=== PATIENT | male | born 1970 | race Caucasian/White ===

== ENCOUNTER 2024-02-26 07:40 | Emergency (ER) | payer BC, SELFPAY ==
[2024-02-26] VITALS (17 sets, daily range): BP systolic 110–128; BP diastolic 66–87; PULSE 65–89; TEMP 36.8; O2SAT 94–99; BMI 29.5
--- NOTE | 2024-02-26 08:23 | ECG_ITS ---
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
--- NOTE | 2024-02-26 08:23 | XR_ITS ---
The [address] [address] Patient Name: MARC HOBBS MRN: [id number] date: 1970 Sex: M Assigned Patient Location: ER Current Patient Location: ER Accession/Order Number: [id number] Exam Date: 02/26/2024 08:48 Report Date: 02/26/2024 09:01 At the request of: KATELYN HU Procedure: XR chest 2V EXAMINATION: XR chest 2V HISTORY: right thoracic pain COMPARISON: No relevant comparison available. TECHNIQUE: PA and lateral FINDINGS: LUNGS: No significant pulmonary parenchymal abnormalities. VASCULATURE: No increased pulmonary vasculature. PLEURA: No pneumothorax, effusion, or pleural thickening. CARDIAC: No cardiomegaly or cardiac silhouette abnormality. MEDIASTINUM: No visible mass or adenopathy. BONES: Mild degenerative disc disease and spondylosis without visible acute abnormalities. OTHER: Negative. XR/XR chest 2V IMPRESSION: No acute cardiopulmonary process Electronically authenticated by: CASSIUS WALTON Date: 02/26/2024 09:01
--- NOTE | 2024-02-26 08:29 | ED.GENADUL1 ---
HPI HPI - General Adult General Chief complaint: Back Pain/Injury Stated complaint: FLANK PAIN, RIGHT SIDE Time Seen by Provider: 02/26/24 08:14 Source: patient and family Mode of arrival: walk-in Limitations: no limitations History of Present Illness HPI narrative: Patient is a 53-year-old male who is presenting to the ER today with chief complaint of sharp stabbing moderate to severe rib pain over the right upper scapular/thoracic area. Patient states that if the twists, turns, rotates and tries to push off something he has severe pain to that area. Yesterday patient was lifting a cooler that was over 100 pounds full of fish and ice along with a fire pit yesterday. Patient did not notice any pain yesterday when the symptoms occurred. Patient lives in [place], patient did drive here locally to [facility]; they then drove to [place], and now are back to the local area can be further go home to [place]. They left . They have had short stops every hour and a half or so, they have not driven a significant amount of time in the car without moving around. Patient has a history of smoking, he currently does not smoke. Patient does have a history of type 2 diabetes, patient takes lisinopril to help protect the kidneys slightly for blood pressure. Also takes cholesterol medication. Patient has no abdominal pain nausea or vomiting. Patient still has his gallbladder and appendix. Patient has no rash. is at bedside. No other acute complaints at this time. All systems are negative except as noted/marked. All systems reviewed and otherwise negative. Nurses note and vital signs reviewed and patient is not hypoxic. General: The patient appears well and in no apparent distress. Patient is resting comfortably on cart. Patient is not toxic, lethargic, or listless Skin: Warm, dry, no pallor noted. There is no rash noted. No petechiae, purpura. Head: Normocephalic, atraumatic Eye: Normal conjunctiva, no drainage, EOMI. PERRL Ears, Nose, Mouth, and Throat: oral mucosa is moist. Nares patent. Mouth without vesicles. Cardiovascular: Regular Rate and Rhythm, no murmur, gallop, rub Respiratory: Patient is in no distress, no accessory muscle use, lungs are clear to auscultation, no wheezing, rales or rhonchi Back: Patient has moderate reproducible tenderness to palpation to the right upper thoracic area, no rash noted, non-tender, no CVA tenderness bilaterally to percussion. No CT LS midline pain GI: no tenderness to palpation, no masses appreciated. No rebound, guarding, or rigidity noted. No distention Musculoskeletal: Patient has full range of motion of all of the extremities, no motor, sensory, or focal neurological deficits. With flexion extension abduction of the right arm, patient does feel a pulling sensation to the right upper thoracic area. No motor or sensory deficits to bilateral upper extremities Neurological: A&O x4, normal speech Psychiatric: Cooperative Related Data Home Medications ?Medication ?Instructions ?Recorded ?Confirmed aspirin 81 mg tablet,delayed 81 mg PO DAILY 02/26/24 02/26/24 release (Adult Aspirin Regimen) atorvastatin 40 mg tablet 40 mg PO DAILY 02/26/24 02/26/24 empagliflozin 25 mg tablet 25 mg PO DAILY 02/26/24 02/26/24 (Jardiance) famotidine 20 mg tablet (Acid 20 mg PO DAILY 02/26/24 02/26/24 Controller) lisinopril 10 mg tablet 10 mg PO DAILY 02/26/24 02/26/24 tirzepatide 10 mg/0.5 mL 10 mg subcut QWEEK 02/26/24 02/26/24 subcutaneous pen injector (Veronica) Previous Rx's ?Medication ?Instructions ?Recorded hydrocodone 7.5 mg-acetaminophen 1 tab PO Q4H PRN pain #10 tabs 02/26/24 325 mg tablet ibuprofen 800 mg tablet 800 mg PO Q8H PRN pain #30 tabs 02/26/24 methocarbamol 500 mg tablet 500 mg PO Q8H PRN muscle pain #10 02/26/24 tabs Allergies Allergy/AdvReac Type Severity Reaction Status Date / Time No Known Drug Allergies Allergy Verified 02/26/24 07:51 Opioid HPI Opioid Management Most Recent Opioid Data: Last Pain Scale 10 02/26/24 08:41 Last MAR Pain Assessment 02/26/24 08:41 PFSH PFSH Social History Little interest or pleasure in doing things: not at all Feeling down, depressed, or hopeless: not at all Exam Constitutional Vital Signs, click to edit/add: Last Vital Signs Temp 98.3 F 02/26/24 07:46 Pulse 74 02/26/24 09:56 Resp 18 02/26/24 09:56 BP 110/66 02/26/24 09:30 Pulse Ox 94 L 02/26/24 09:56 O2 Del Method Room Air 02/26/24 09:56 Course Vital Signs Vital signs: Vital Signs Temperature 98.3 F 02/26/24 07:46 Pulse Rate 88 02/26/24 07:46 Respiratory Rate 16 02/26/24 07:46 Blood Pressure 125/87 02/26/24 07:46 Pulse Oximetry 99 02/26/24 07:46 Oxygen Delivery Method Room Air 02/26/24 07:46 Temperature 98.3 F 02/26/24 07:46 Pulse Rate 74 02/26/24 09:56 Respiratory Rate 18 02/26/24 09:56 Blood Pressure 110/66 02/26/24 09:30 Pulse Oximetry 94 L 02/26/24 09:56 Oxygen Delivery Method Room Air 02/26/24 09:56 Medical Decision Making MDM Narrative Medical decision making narrative: Patient D-dimer, troponin, EKG, x-ray, lab work shows no acute findings. Education was done on ice and not using heat. Patient was sent home with prescription for Robaxin, pain medication, ibuprofen. Patient will follow-up with PCP when he gets back to [place] for any other acute concerns. Patient is not have any type of chest pain, tightness, shortness of breath, most the patient's pain was to the right thoracic area. Patient and were very thankful for help. Lab Data Labs: Lab Results 02/26/24 Range/Units 08:28 WBC 6.4 (4.0-11.0) 10^3/uL RBC 5.50 (4.70-6.10) 10^6/uL Hgb 16.5 (14.0-18.0) g/dL Hct 47.9 (42.0-54.0) % MCV 87.1 (80.0-94.0) fL MCH 30.0 (25.9-34.0) pg MCHC 34.4 (29.9-35.2) g/dL RDW 12.2 (11.0-15.0) % Plt Count 156 (150-450) 10^3/uL MPV 11.3 (9.5-13.5) fL Neut % (Auto) 64.4 (43.0-75.0) % Lymph % (Auto) 25.3 (20.5-60.0) % Cottle % (Auto) 6.8 (1.7-12.0) % Eos % (Auto) 2.4 (0.9-7.0) % Baso % (Auto) 0.9 (0.2-2.0) % Neut # (Auto) 4.1 (1.4-6.5) 10^3/uL Lymph # (Auto) 1.6 (1.2-3.8) 10^3/uL Cottle # (Auto) 0.4 (0.3-0.8) 10^3/uL Eos # (Auto) 0.2 (0.0-0.7) 10^3/uL Baso # (Auto) 0.1 (0.0-0.1) 10^3/uL Abs Immat Gran (auto) 0.01 (0.00-0.03) 10^3/uL Imm/Tot Granulo (auto) 0.2 (0.0-0.5) % D-Dimer <0.19 (<=0.59) mg/L FEU Sodium 141 (136-145) mmol/L Potassium 4.1 (3.5-5.1) mmol/L Chloride 106 (98-107) mmol/L Carbon Dioxide 25.7 (21.0-32.0) mmol/L Anion Gap 13.4 BUN 17.0 (7.0-18.0) mg/dL Creatinine 0.80 (0.70-1.30) mg/dL Est GFR ( Amer) >60 (>=60) Est GFR (Non-Af Amer) >60 (>=60) BUN/Creatinine Ratio 21.2 Glucose 130 H (74-106) mg/dL Calcium 9.2 (8.5-10.1) mg/dL Total Bilirubin 0.4 (0.2-1.0) mg/dL AST 11 L (15-37) U/L ALT 41 (16-63) U/L Alkaline Phosphatase 60 (46-116) U/L Troponin I High Sens <4.0 L (4.0-76.1) pg/mL NT-Pro-B Natriuret Pep 20.0 (<=900.0) pg/mL Total Protein 6.7 (6.4-8.2) g/dL Albumin 3.9 (3.4-5.0) g/dL Globulin 2.8 g/dL Albumin/Globulin Ratio 1.4 ECG Data Attestation: I personally reviewed and interpreted this ECG as follows: (EKG interpretation. Normal sinus rhythm at 74 beats a minute. Normal axis deviation. No acute ST elevation, no acute ectopy. QTc of 385. ) Discharge Plan Discharge Chief Complaint: Back Pain/Injury Clinical Impression: Thoracic back pain Patient Disposition: Home, Self-Care Time of Disposition Decision: 09:40 Condition: Fair Prescriptions / Home Meds: New methocarbamol 500 mg tablet 500 mg PO Q8H PRN (Reason: muscle pain) Qty: 10 0RF ibuprofen 800 mg tablet 800 mg PO Q8H PRN (Reason: pain) Qty: 30 0RF Rx Instructions: with food and drink hydrocodone-acetaminophen 7.5-325 mg tablet 1 tab PO Q4H PRN (Reason: pain) Qty: 10 0RF No Action aspirin [Adult Aspirin Regimen] 81 mg tablet,delayed release (DR/EC) 81 mg PO DAILY atorvastatin 40 mg tablet 40 mg PO DAILY Jardiance 25 mg tablet 25 mg PO DAILY lisinopril 10 mg tablet 10 mg PO DAILY Mounjaro 10 mg/0.5 mL pen injector 10 mg subcut QWEEK famotidine [Acid Controller] 20 mg tablet 20 mg PO DAILY Print Language: Turkmen Instructions: Thoracic Pain (ED), Back Pain (ED), Thoracic Back Strain (ED) Additional Instructions: Use ice 20 minutes on, 20 minutes off. Do not use heat. Upper thoracic stretching exercises 3-4 times a day to help with pain. Follow-up with PCP in [place]. Alternate Tylenol and either Motrin, Advil, or ibuprofen every 4 hours to help with pain. If you are having severe pain, substitute a [place] tablet instead of Tylenol. Do not take Tylenol and [place] at the same time, you may actually take too much Tylenol at 1 setting or in 1 day. Maximum Tylenol dose of Tylenol is 3000 mg a day. Maximum dose of either Motrin, Advil, or ibuprofen is 2400 mg a day. Referrals: Physician,Non-Staff, MD [Primary Care Provider] - 1 week Discharge Date/Time: 02/26/24 09:57
[2024-02-26 08:37] LABS: Basophils Absolute Auto 0.1 10^3/uL (0.0-0.1); Basophils Percent Auto 0.9 % (0.2-2.0); Eosinophils Absolute Auto 0.2 10^3/uL (0.0-0.7); Eosinophils Percent Auto 2.4 % (0.9-7.0); Hematocrit 47.9 % (42.0-54.0); Hemoglobin 16.5 g/dL (14.0-18.0); Immature Granulocytes Abs Auto 0.01 10^3/uL (0.00-0.03); Immature Granulocytes Pct Auto 0.2 % (0.0-0.5); Lymphocytes Absolute Auto 1.6 10^3/uL (1.2-3.8); Lymphocytes Percent Auto 25.3 % (20.5-60.0); Mean Corpuscular HGB Conc 34.4 g/dL (29.9-35.2); Mean Corpuscular Volume 87.1 fL (80.0-94.0); Mean Platelet Volume 11.3 fL (9.5-13.5); Monocytes Absolute Auto 0.4 10^3/uL (0.3-0.8); Monocytes Percent Auto 6.8 % (1.7-12.0); Neutrophils Absolute Auto 4.1 10^3/uL (1.4-6.5); Neutrophils Percent Auto 64.4 % (43.0-75.0); Platelet Count 156 10^3/uL (150-450); Red Cell Distribution Width 12.2 % (11.0-15.0); White Blood Count 6.4 10^3/uL (4.0-11.0)
[2024-02-26] MEDS: METHOCARBAMOL 500 MG TABLET PO (08:38)
[2024-02-26] MEDS: MORPHINE SULFATE 4 MG/ML VIAL IM (08:41)
[2024-02-26] MEDS: KETOROLAC TROMETHAMINE 30 MG/ML VIAL 15 MG IVP (08:41)
[2024-02-26] MEDS: ASPIRIN 81 MG TAB.CHEW 162 MG PO (08:43)
[2024-02-26 08:49] LABS: D Dimer <0.19 mg/L FEU (<=0.59)
[2024-02-26 09:01] LABS: Alanine Aminotransferase 41 U/L (16-63); Albumin Globulin Ratio 1.4; Albumin Level 3.9 g/dL (3.4-5.0); Alkaline Phosphatase 60 U/L (46-116); Anion Gap 13.4; Aspartate Amino Transferase 11 U/L (15-37); BUN Creatinine Ratio 21.2; Bilirubin Total 0.4 mg/dL (0.2-1.0); Calcium 9.2 mg/dL (8.5-10.1); Carbon Dioxide 25.7 mmol/L (21.0-32.0); Chloride 106 mmol/L (98-107); Estimated GFR (African America >60 (>=60); Estimated GFR (Non-African Ame >60 (>=60); Globulin 2.8 g/dL; Glucose 130 mg/dL (74-106); Potassium 4.1 mmol/L (3.5-5.1); Sodium 141 mmol/L (136-145); Total Protein 6.7 g/dL (6.4-8.2); Troponin I High Sensitivity <4.0 pg/mL (4.0-76.1)
[2024-02-26] MEDS: 0.9 % SODIUM CHLORIDE 1,000 ML 1000 ML IV (09:05)
== END 2024-02-26 09:57 | disposition home or self-care (01) ==
PROVIDERS: Emergency Provider Emergency Medicine
DX: M54.6 Pain in thoracic spine (principal); Z87.891 Personal history of nicotine dependence; E11.9 Type 2 diabetes mellitus without complications; Z79.899 Other long term (current) drug therapy
CPT/HCPCS: 36415; 71046; 80053; 83880; 84484; 85025; 85378; 93005; 96372; 96374; 99285; J1885; J2270